=== PATIENT | male | born 1945 | race Caucasian/White ===

== ENCOUNTER 2018-08-02 19:42 | Emergency (ER) | payer SELFPAY ==
[~2018-08-02] VITALS: Ht 198.1 cm; Wt 82.2 kg
[2018-08-02 20:12] VITALS: BP 114/81
--- NOTE | 2018-08-02 20:23 | PHYS DOC ---
Adult General Chief Complaint Chief Complaint 73 years old gentleman with multiple medical problems including #1 history of syncope in the past, seizure, pacemaker placement , round and the men's bathroom on the floor stated that when he finished urinating he felt very dizzy and had a syncopal episode. He does not remember what happened after that HPI HPI Patient is a [age] year old [sex] who presents with [] Review of Systems Review of Systems Constitutional: Denies fever or chills [] Eyes: Denies change in visual acuity, redness, or eye pain [] HENT: Denies nasal congestion or sore throat [] Respiratory: Denies cough or shortness of breath [] Cardiovascular: No additional information not addressed in HPI [] GI: Denies abdominal pain, nausea, vomiting, bloody stools or diarrhea [] : Denies dysuria or hematuria [] Musculoskeletal: Denies back pain or joint pain [] Integument: Denies rash or skin lesions [] Neurologic: Denies headache, focal weakness or sensory changes [] Endocrine: Denies polyuria or polydipsia [] All other systems were reviewed and found to be within normal limits, except as documented in this note. Allergies Allergies Allergies Coded Allergies Type Severity Reaction Last Updated Verified No Known Drug Allergies 08/02/18 No Physical Exam Physical Exam Constitutional: Well developed, well nourished, no acute distress, non-toxic appearance. [] HENT: Normocephalic, atraumatic, bilateral external ears normal, oropharynx moist, no oral exudates, nose normal. [] Eyes: PERRLA, EOMI, conjunctiva normal, no discharge. [] Neck: Normal range of motion, no tenderness, supple, no stridor. [] Cardiovascular:Heart rate regular rhythm, no murmur [] Lungs & Thorax: Bilateral breath sounds clear to auscultation [] Abdomen: Bowel sounds normal, soft, no tenderness, no masses, no pulsatile masses. [] Skin: Warm, dry, no erythema, no rash. [] Back: No tenderness, no CVA tenderness. [] Extremities: No tenderness, no cyanosis, no clubbing, ROM intact, no edema. [] Neurologic: Alert and oriented X 3, normal motor function, normal sensory function, no focal deficits noted. [] Psychologic: Affect normal, judgement normal, mood normal. [] Current Patient Data Vital Signs Vital Signs Date Time Temp Pulse Resp B/P (MAP) Pulse Ox O2 Delivery O2 Flow Rate FiO2 08/02/18 19:42 97.5 61 18 97 Room Air Lab Results Laboratory Tests Test 08/02/18 20:27 White Blood Count 6.5 x10^3/uL (4.0-11.0) Red Blood Count 4.54 x10^6/uL (4.30-5.70) Hemoglobin 13.3 g/dL (13.0-17.5) Hematocrit 39.3 % (39.0-53.0) Mean Corpuscular Volume 87 fL (79-100) Mean Corpuscular Hemoglobin 29 pg (25-35) Mean Corpuscular Hemoglobin Concent 34 g/dL (31-37) Red Cell Distribution Width 13.4 % (11.5-14.5) Platelet Count 143 x10^3/uL (140-400) Neutrophils (%) (Auto) 79 % (31-73) H Lymphocytes (%) (Auto) 13 % (24-48) L Monocytes (%) (Auto) 8 % (0-9) Eosinophils (%) (Auto) 0 % (0-3) Basophils (%) (Auto) 1 % (0-3) Neutrophils # (Auto) 5.1 x10^3uL (1.8-7.7) Lymphocytes # (Auto) 0.8 x10^3/uL (1.0-4.8) L Monocytes # (Auto) 0.5 x10^3/uL (0.0-1.1) Eosinophils # (Auto) 0.0 x10^3/uL (0.0-0.7) Basophils # (Auto) 0.0 x10^3/uL (0.0-0.2) Prothrombin Time 10.1 SEC (9.4-11.4) Prothrombin Time INR 1.0 (0.9-1.1) PTT 26 SEC (23-33) Sodium Level 135 mmol/L (136-145) L Potassium Level 4.4 mmol/L (3.5-5.1) Chloride Level 99 mmol/L (98-107) Carbon Dioxide Level 28 mmol/L (21-32) Anion Gap 8 (6-14) Blood Urea Nitrogen 26 mg/dL (8-26) Creatinine 0.9 mg/dL (0.7-1.3) Estimated GFR (Cockcroft-Gault) 83.2 BUN/Creatinine Ratio 29 (6-20) H Glucose Level 102 mg/dL (70-99) H Calcium Level 8.8 mg/dL (8.5-10.1) Total Bilirubin 0.7 mg/dL (0.2-1.0) Aspartate Amino Transferase (AST) 46 U/L (15-37) H Alanine Aminotransferase (ALT) 38 U/L (16-63) Alkaline Phosphatase 78 U/L (46-116) Troponin I Quantitative 0.025 ng/mL (0-0.055) Total Protein 6.6 g/dL (6.4-8.2) Albumin 3.6 g/dL (3.4-5.0) Albumin/Globulin Ratio 1.2 (1.0-1.7) EKG EKG [] Radiology/Procedures Radiology/Procedures [] Course & Med Decision Making Course & Med Decision Making Pertinent Labs and Imaging studies reviewed. (See chart for details) A very lengthy discussion with the patient regarding his blood work x-rays and diagnoses I advised to stay the hospital for observation to rule out any arrhythmia or suture he declined stated this happened me many times in the past on finding I would like to go home I explained the risk and benefits she verbalizes understanding he sign AGAINST MEDICAL ADVICE and left home [] Final Impression Final Impression [] Problems: (1) Syncope Qualifiers: Qualified Codes: R55 - Syncope and collapse Dragon Disclaimer Dragon Disclaimer This electronic medical record was generated, in whole or in part, using a voice recognition dictation system. OCTAVIO CRENSHAW MD Aug 02, 2018 20:23
--- NOTE | 2018-08-02 20:28 | RAD ---
PQRS Compliance statement: One or more of the following individualized dose reduction techniques were utilized for this examination: 1. Automated exposure control. 2. Adjustment of the mA and/or kV according to patient size. 3. Use of iterative reconstruction technique. Indication:Syncope, confusion TECHNIQUE: CT head without IV contrast COMPARISON:None FINDINGS: No pathologic extra-axial or intra-axial fluid collection. The ventricles and basal cisterns are within normal limits. No acute intracranial bleed. 5 mm focus of low attenuation in the left basal ganglia most likely a lacunar infarct, age indeterminate but likely subacute to chronic. No focal loss of powell-white differentiation. Orbits are within normal limits. No suspicious calvarial lesion. Visualized paranasal sinuses and mastoid air cells are clear. IMPRESSION: No acute intracranial process. If concern for acute ischemic stroke is high, please consider MRI brain. Electronically signed by: Stiven Shea DO (08/02/2018 8:25 PM) [facility]
[2018-08-02 20:50] LABS: BASO % 1 % (0-3); EOS % 0 % (0-3); HEMATOCRIT 39.3 % (39.0-53.0); HEMOGLOBIN 13.3 g/dL (13.0-17.5); LYMPH # 0.8 x10^3/uL (1.0-4.8); LYMPH % 13 % (24-48); MEAN CORPUSCULAR HEMOGLOBIN 29 pg (25-35); MEAN CORPUSCULAR HGB CONC 34 g/dL (31-37); MEAN CORPUSCULAR VOLUME 87 fL (79-100); MONO # 0.5 x10^3/uL (0.0-1.1); MONO % 8 % (0-9); NEUT # 5.1 x10^3uL (1.8-7.7); NEUT % 79 % (31-73); PLATELET COUNT 143 x10^3/uL (140-400); RED BLOOD COUNT 4.54 x10^6/uL (4.30-5.70); RED CELL DISTRIBUTION WIDTH 13.4 % (11.5-14.5); WHITE BLOOD COUNT 6.5 x10^3/uL (4.0-11.0)
[2018-08-02 21:10] LABS: ALBUMIN 3.6 g/dL (3.4-5.0); ALBUMIN/GLOBULIN RATIO 1.2 (1.0-1.7); CALCIUM 8.8 mg/dL (8.5-10.1); CREATININE 0.9 mg/dL (0.7-1.3); GFR 83.2; POTASSIUM 4.4 mmol/L (3.5-5.1); TOTAL BILIRUBIN 0.7 mg/dL (0.2-1.0); TOTAL PROTEIN 6.6 g/dL (6.4-8.2)
--- NOTE | 2018-08-03 00:34 | EKG ---
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
== END 2018-08-02 21:57 | disposition left against medical advice (07) ==
LOC: ER 19:42
DX: R55 Syncope and collapse (principal); R42 Dizziness and giddiness; Z95.0 Presence of cardiac pacemaker
CPT/HCPCS: 36415; 70450; 80053; 84484; 85025; 85610; 85730; 93005; 99284

== ENCOUNTER 2019-08-27 10:37 | Inpatient (IN) | payer MEDICARE, OTHER ==
[2019-08-27] VITALS (10 sets, daily range): BP systolic 104–141; BP diastolic 62–80
[~2019-08-27] VITALS: Ht 198.1 cm; Wt 82.8 kg
--- NOTE | 2019-08-27 10:55 | PHYS DOC ---
Past History Past Medical History: Seizure, Other Past Surgical History: Appendectomy, Pacemaker, Other Alcohol Use: None Drug Use: None Adult General Chief Complaint Chief Complaint: SEIZURE HPI HPI Patient is a 74-year-old male presents after falling and hitting his head. He is on blood thinners. EMS brought the patient to the emergency department from the assisted care facility where he resides. While in the ambulance patient had a seizure. Patient does have a history of seizures for which she is on Keppra. He was given 5 mg of midazolam by EMS. History is from EMS. History is limited from the patient due to being postictal and post benzodiazepine administration.[] Review of Systems Review of Systems Unable to obtain due to altered mental status All other systems were reviewed and found to be within normal limits, except as documented in this note. Allergies Allergies Allergies Coded Allergies Type Severity Reaction Last Updated Verified No Known Drug Allergies 08/02/18 No Physical Exam Physical Exam Constitutional: Well developed, well nourished,. [] HENT: Normocephalic, laceration to left side of face as well as within his left sided hairline. Bilateral external ears normal, oropharynx moist, no oral exudates, nose normal. [] Eyes: PERRLA, EOMI, conjunctiva normal, no discharge. [] Neck: Cervical collar is in place. There is no step-off or crepitus midline cervical spine. supple, no stridor. [] Cardiovascular:Heart rate regular rhythm, no murmur [] Lungs & Thorax: Bilateral breath sounds clear to auscultation [] Abdomen: Bowel sounds normal, soft, no tenderness, no masses, no pulsatile masses. [] Skin: Warm, dry, no erythema, no rash. [] Back: No tenderness, no CVA tenderness. [] Extremities: No tenderness, no cyanosis, no clubbing, ROM intact, no edema. [] Neurologic: GCS of 3 but reflex is intact. He is tolerating his secretions.. [] Psychologic: Unable to evaluate. [] EKG EKG EKG shows a paced rhythm at 70 bpm, 160 axis, QTC of 513 ms, no ST elevations. Looks like an underlying fibrillation pattern. Compared to EKG of 08/02/2018, no acute changes are present.[] Radiology/Procedures Radiology/Procedures PROCEDURE: CT HEAD AND CERVICAL SPINE WO CT of the head, and CT scan of the cervical spine, for seizure, fall with head injury, patient on blood thinners. COMPARISON: Noncontrast CT scan of the head dated August 02, 2018. TECHNIQUE: Contiguous helical 5 mm axial images are obtained from the skull base to the vertex. No IV contrast was administered. Sagittal and coronal reformations are evaluated. 2 mm axial images are then obtained to the cervical spine, with scan without IV contrast, and sagittal and coronal reformations are evaluated in this distribution as well. Findings in the head: Images of the base are degraded somewhat by motion artifact. There is no acute territorial infarction, or intracranial hemorrhage. There is no mass, mass effect, or midline shift. There are couple of lacunar infarcts within the will radiata bilaterally. Ventricles are mildly enlarged. No extra axial fluid collection identified. Mastoid air cells and visualized paranasal sinuses are grossly unremarkable. No fractures or acute osseous abnormality is identified. There is a subgaleal right frontal hematoma. Impression of the head: 1. Small right frontal subgaleal hematoma with no acute intracranial abnormality. Findings in the cervical spine: These images are also degraded by motion artifact. Particularly at the cervicothoracic junction. No significant prevertebral soft tissue abnormality is identified. Mild coronary artery calcified case are seen. There is no fracture, or acute osseous or alignment abnormality of the cervical spine. There is straightening of the normal cervical lordosis. Prevertebral soft tissues are grossly unremarkable. There are severe multilevel degenerative changes, resulting in mild bony canal stenosis at C6-7. There are anterior and posterior osteophytes at C5-6 and C6-7, with significant narrowing of the intervertebral disc spaces at these levels, extensive facet arthrosis is seen bilaterally at all levels, and uncovertebral arthritis is also present at virtually all levels. There is mild neural foraminal narrowing at C2-3 on the left, moderate to severe neuroforaminal narrowing at C3-4 on the left, and moderate to severe narrowing of the left neural foramen at C6-7 on the left. IMPRESSION: 1. Straightening of the normal cervical lordosis with no acute osseous or alignment abnormality. 2. Severe multilevel degenerative changes resulting in bony central canal stenosis at C6-7 and moderate to severe neural foraminal narrowing on the left at C2-3 and C6-7.[] Course & Med Decision Making Course & Med Decision Making Pertinent Labs and Imaging studies reviewed. (See chart for details) Emergency department course: Patient arrived, was placed in bed, and tolerated exam well. He was transported to and from [place] with any complications. After returning from [place], his GCS improved however, he was still confused. Wounds were repaired as documented in the laceration no. He was updated on his tetanus status since he cannot recall when his last tetanus vaccine was. Consultation wa s made with hospitalist service for admission and further observation giving his still decreased mental status and being on blood thinners post a head injury. He was admitted in improved condition. Medical decision making: Patient with a known seizure disorder who had a seizure following head injury. His mental status has been clearing during his emergency department stay. However, admitting him for further evaluation and possible repeat CT scan given that he is on blood thinners.[] Dragon Disclaimer Dragon Disclaimer This electronic medical record was generated, in whole or in part, using a voice recognition dictation system. 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 The laceration was closed with 2 elsy. The facial laceration and multiple abrasions were covered with skin glue. Total repaired wound length: Scalp laceration 2 cm, facial laceration 1.5 cm. Other Items: See above The patient tolerated the procedure well. Hemostasis was achieved. Complications: None. Problem Qualifiers Primary Impression: Head injury Encounter type: initial encounter Qualified Codes: S09.90XA - Unspecified injury of head, initial encounter Additional Impressions: Altered mental status Altered mental status type: somnolence Qualified Codes: R40.0 - Somnolence Atrial fibrillation Atrial fibrillation type: unspecified Qualified Codes: I48.91 - Unspecified atrial fibrillation WILLY KERR DO Aug 27, 2019 10:55
[2019-08-27 11:12] LABS: BASO % 0 % (0-3); EOS % 1 % (0-3); HEMATOCRIT 52.8 % (39.0-53.0); HEMOGLOBIN 17.3 g/dL (13.0-17.5); LYMPH # 1.4 x10^3/uL (1.0-4.8); LYMPH % 23 % (24-48); MEAN CORPUSCULAR HEMOGLOBIN 30 pg (25-35); MEAN CORPUSCULAR HGB CONC 33 g/dL (31-37); MEAN CORPUSCULAR VOLUME 91 fL (79-100); MONO # 0.4 x10^3/uL (0.0-1.1); MONO % 7 % (0-9); NEUT # 4.4 x10^3uL (1.8-7.7); NEUT % 70 % (31-73); PLATELET COUNT 104 x10^3/uL (140-400); RED BLOOD COUNT 5.82 x10^6/uL (4.30-5.70); RED CELL DISTRIBUTION WIDTH 14.1 % (11.5-14.5); WHITE BLOOD COUNT 6.3 x10^3/uL (4.0-11.0)
[2019-08-27 11:24] LABS: ALBUMIN 3.9 g/dL (3.4-5.0); ALBUMIN/GLOBULIN RATIO 1.1 (1.0-1.7); CALCIUM 8.7 mg/dL (8.5-10.1); CREATININE 1.5 mg/dL (0.7-1.3); POTASSIUM 3.6 mmol/L (3.5-5.1); TOTAL BILIRUBIN 0.7 mg/dL (0.2-1.0); TOTAL PROTEIN 7.3 g/dL (6.4-8.2)
[2019-08-27 11:34] LABS: BACTERIA,URINE 0 /HPF (0-FEW); BILIRUBIN,URINE NEG (NEG); CLARITY,URINE HAZY; COLOR,URINE YELLOW; GLUCOSE,URINE NEG (NEG); NITRITE,URINE NEG (NEG); UROBILINOGEN,URINE 0.2 mg/dL (0.2 mg/dL); WBC,URINE OCC /HPF (0-4)
--- NOTE | 2019-08-27 12:08 | EKG ---
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
[2019-08-27] MEDS ORDERED: APIX5TAB3 PO (12:14)
[2019-08-27] MEDS ORDERED: LEVO75TA PO (12:14)
[2019-08-27] MEDS ORDERED: LEVE100020 PO (12:14)
[2019-08-27] MEDS ORDERED: METO50TA29 PO (12:14)
[2019-08-27] MEDS ORDERED: IV NORMAL SALINE 500ML 500 ML IV ONE (12:15)
[2019-08-27] MEDS ORDERED: IV NORMAL SALINE 1,000ML 1,000 ML IV ONE (12:15)
--- NOTE | 2019-08-27 12:17 | RAD ---
CT of the head, and CT scan of the cervical spine, for seizure, fall with head injury, patient on blood thinners. COMPARISON: Noncontrast CT scan of the head dated August 02, 2018. TECHNIQUE: Contiguous helical 5 mm axial images are obtained from the skull base to the vertex. No IV contrast was administered. Sagittal and coronal reformations are evaluated. 2 mm axial images are then obtained to the cervical spine, with scan without IV contrast, and sagittal and coronal reformations are evaluated in this distribution as well. Findings in the head: Images of the base are degraded somewhat by motion artifact. There is no acute territorial infarction, or intracranial hemorrhage. There is no mass, mass effect, or midline shift. There are couple of lacunar infarcts within the will radiata bilaterally. Ventricles are mildly enlarged. No extra axial fluid collection identified. Mastoid air cells and visualized paranasal sinuses are grossly unremarkable. No fractures or acute osseous abnormality is identified. There is a subgaleal right frontal hematoma. Impression of the head: 1. Small right frontal subgaleal hematoma with no acute intracranial abnormality. Findings in the cervical spine: These images are also degraded by motion artifact. Particularly at the cervicothoracic junction. No significant prevertebral soft tissue abnormality is identified. Mild coronary artery calcified case are seen. There is no fracture, or acute osseous or alignment abnormality of the cervical spine. There is straightening of the normal cervical lordosis. Prevertebral soft tissues are grossly unremarkable. There are severe multilevel degenerative changes, resulting in mild bony canal stenosis at C6-7. There are anterior and posterior osteophytes at C5-6 and C6-7, with significant narrowing of the intervertebral disc spaces at these levels, extensive facet arthrosis is seen bilaterally at all levels, and uncovertebral arthritis is also present at virtually all levels. There is mild neural foraminal narrowing at C2-3 on the left, moderate to severe neuroforaminal narrowing at C3-4 on the left, and moderate to severe narrowing of the left neural foramen at C6-7 on the left. IMPRESSION: 1. Straightening of the normal cervical lordosis with no acute osseous or alignment abnormality. 2. Severe multilevel degenerative changes resulting in bony central canal stenosis at C6-7 and moderate to severe neural foraminal narrowing on the left at C2-3 and C6-7. PQRS Compliance Statement: One or more of the following individualized dose reduction techniques were utilized for this examination: 1. Automated exposure control 2. Adjustment of the mA and/or kV according to patient size 3. Use of iterative reconstruction technique Electronically signed by: Nghia Varela MD (08/27/2019 12:14 PM) [facility]
[2019-08-27] MEDS ORDERED: ACETAMINOPHEN 325 MG TABLET PO PRN (14:00)
[2019-08-27] MEDS ORDERED: ONDANSETRON PF 4 MG/2 ML VIAL. IV PRN (14:00)
[2019-08-27] MEDS ORDERED: DIPHTH,PERTUSS(ACELL),TET TOX 0.5 ML DISP.SYRIN. VAX IM ONE (14:00)
--- NOTE | 2019-08-27 15:10 | NUR ---
The patient, STEPHANIE LUA, 74 y/o, M admitted by FERMIN VEGA MD, was given written information regarding hospital policies, unit procedures and contact persons. Valuables were checked and left with patient. Pt confused upon arrival. Pt states "Is it 3 O'clock in the morning?" Pt continually states "I need to pee, I need to pee." Pts munoz was D/C with ER nurse prior to arrival. Will follow up with Bladder scanner if not resolved. VSS at this time will CTM.
--- NOTE | 2019-08-27 15:20 | NUR ---
This nurse did not witness seizure; GILSON Ward & Celsa RN helped pt to bed, pt was clenching fists and teeth and shaking, was not responsive to nurse/WELDER [employer]. Seizure approximately last 30 seconds. Will CTM.
--- NOTE | 2019-08-27 15:25 | NUR ---
CALL PLACED TO DR. VEGA; ORDERS RECIEVED FOR KEPPRA IV 1,[address] FOR TOMORROW MORNING.
[2019-08-27] MEDS: levETIRAcetam 1,500 MG in IV NORMAL SALINE 100ML 100 ML IV SCH ×2 (15:43→20:35)
[2019-08-27] MEDS: Influenza vaccine per PROTOCOL. MC ONE (17:00)
--- NOTE | 2019-08-27 20:35 | HP ---
ADMIT DATE: 08/27/2019 ATTENDING PHYSICIAN: Dr. Vega. CHIEF COMPLAINT: Head injury. HISTORY OF PRESENT ILLNESS: The patient is a very pleasant 74-year-old gentleman who has been in independent living at [facility]. He is on blood thinners, Eliquis, for chronic atrial fibrillation. He has a permanent pacemaker. He fell, he tripped and did not realize that. After he fell, he had a witnessed seizure by EMS personnel. He does have underlying seizure disorder. He was given Versed. The patient was very obtunded. In the ED, he was in a postictal state. He woke up later, he had an urgent CT of the head which showed no evidence of intracranial bleeding. He had a very small frontal subgaleal hematoma without any acute intracranial abnormalities. Cervical spine films are unremarkable for any fractures. Because of the seizures, I have ordered some Keppra. He was admitted overnight for observation. He later woke up and was able to give some pertinent history. PAST MEDICAL HISTORY: Significant for idiopathic seizure disorder. He does not know why he is taking medication. He thought this was due to unwarranted complications from certain medications that he has used. He also has a permanent pacemaker placed several years ago. He is a . 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 He goes normally to the [facility] [facility]. CURRENT MEDICINES: Reviewed. He was taking Eliquis twice a day along with aspirin p.r.n., Keppra, lorazepam, and metoprolol 50 mg daily. ALLERGIES: He has allergies to PENICILLIN which causes a rash. He has been fairly alert and active. FAMILY HISTORY: Mother at age 71 of unknown causes. Father in his 50 again of unknown causes. REVIEW OF SYSTEMS: Significant for the irregular heartbeat. He has got a permanent pacemaker. He has had snf use of blood thinners. All other systems reviewed and determined to be negative. PHYSICAL EXAMINATION: GENERAL AND VITAL SIGNS: When I saw him, this is a pleasant gentleman who was alert and awake by the time I saw him a few hours later in the unit. His initial vital signs showed a blood pressure of 120/75, pulse is 70 and regular, paced rhythm, room air saturations oxygen was 96%. HEENT: Head is without trauma. There are a few scratches on his face. No open wounds. Pupils are reactive. Sclerae nonicteric. Oropharynx clear. NECK: Supple, no bruits or decreased range of motion. LUNGS: Otherwise clear to auscultation. CARDIOVASCULAR: Showed regular heart tones. Pacemaker is in place. Peripheral pulses are palpable and full. ABDOMEN: Soft, scaphoid, nontender, no organomegaly. Bowel sounds are normoactive. EXTREMITIES: Show no cyanosis or edema. NEUROLOGIC: The patient had some witnessed seizure earlier, he is still a little lethargic. He is nonambulatory at this time, but he has no focal neurologic deficit. Speech is actually fluent and appropriate. PERTINENT LABORATORY STUDIES: His hemoglobin in a hemoconcentrated state was 17.3 g/dL with a white count of 6300. Chemistry panel showed creatinine 1.5. Electrolytes within normal range. Lactate was initially recorded at 1048 hours at 9.7, repeated at 1411 hours down to 1.3 and normal. Bilirubin, transaminases and total protein were all within normal range. The obligatory CT of the head and cervical spine films are as noted. ASSESSMENT: 1. A 74-year-old gentleman with fall at home, accidental. 2. Concussion, acute. 3. Chronic use of anticoagulation. Initial CT scan showed no evidence of intracranial hemorrhage. 4. Permanent pacemaker that is functioning. 5. Idiopathic seizure disorder with breakthrough seizures. 6. Mild dehydration. PLAN: 1. Admit to the ICU. 2. Neuro checks every hour for the next 8 hours. 3. Diet as tolerated. 4. I have ordered IV Keppra 1500 mg IV twice a day. We will switch him over to oral dose when he is more awake. 5. Followup CT scan in the morning. FERMIN VEGA MD DR: TY/hank JOB#: [id number] / [id number] ecc Carlos A,
[2019-08-28] VITALS (21 sets, daily range): BP systolic 105–157; BP diastolic 62–92
[2019-08-28 07:10] LABS: BASO % 0 % (0-3); EOS % 0 % (0-3); HEMATOCRIT 46.3 % (39.0-53.0); HEMOGLOBIN 15.6 g/dL (13.0-17.5); LYMPH # 0.8 x10^3/uL (1.0-4.8); LYMPH % 12 % (24-48); MEAN CORPUSCULAR HEMOGLOBIN 30 pg (25-35); MEAN CORPUSCULAR HGB CONC 34 g/dL (31-37); MEAN CORPUSCULAR VOLUME 88 fL (79-100); MONO # 0.5 x10^3/uL (0.0-1.1); MONO % 7 % (0-9); NEUT # 5.4 x10^3uL (1.8-7.7); NEUT % 80 % (31-73); PLATELET COUNT 89 x10^3/uL (140-400); RED BLOOD COUNT 5.29 x10^6/uL (4.30-5.70); WHITE BLOOD COUNT 6.7 x10^3/uL (4.0-11.0)
[2019-08-28 07:25] LABS: CALCIUM 8.1 mg/dL (8.5-10.1); GFR 73.5; POTASSIUM 3.6 mmol/L (3.5-5.1)
[2019-08-28 09:25] LABS: % ATYL 3 % (0-0); % BANDS 7 % (0-9); % EOS 1 % (0-5); % LYMPHS 9 % (24-48); % MONOS 10 % (0-10); % SEGS 70 % (35-66)
[2019-08-28 09:27] LABS: PLT ESTIMATE DECREASED (ADEQUATE)
[2019-08-28] MEDS: levETIRAcetam 1,500 MG in IV NORMAL SALINE 100ML 100 ML IV SCH ×2 (09:31→20:09)
--- NOTE | 2019-08-28 09:52 | RAD ---
CT HEAD INDICATION: Status post fall, seizure COMPARISON: 08/27/2019 Exposure: One or more of the following individualized dose reduction techniques were utilized for this examination: 1. Automated exposure control 2. Adjustment of the mA and/or kV according to patient size 3. Use of iterative reconstruction technique TECHNIQUE: 5 mm contiguous axial images were obtained from the skull base to the vertex in both bone and soft tissue algorithm. FINDINGS: No abnormal attenuation within the brain parenchyma. No evidence of acute intracranial hemorrhage. No extra-axial fluid collections. No mass effect or midline shift. Ventricular size is appropriate. Basal cisterns are patent. No fractures identified.Rice-white differentiation is preserved.Globes and orbits are within normal limits. Paranasal sinuses and mastoid air cells are clear. Small right frontal scalp hematoma unchanged. IMPRESSION: No acute intracranial findings. Electronically signed by: David Friend MD (08/28/2019 9:49 AM) [facility]
--- NOTE | 2019-08-28 12:55 | NUR ---
Witnessed activity: pt clenched fists, contracted legs, slight shaking, repeatedly biting teeth together, staring. Lasted about 40 seconds. Pt stated, "Whew...I want, I want", but could not tell me what he wanted. He reoriented after about 1 minute and returned to baseline.
--- NOTE | 2019-08-28 16:34 | NUR ---
About 1600, pt experienced another episode, lasting about 1 minute. Clenched fists, increased respirations and heart rate, staring, stating "I want to, I want to, I want to". Returned to baseline. Pt spoke with brother, Mayo, on phone. Pt is hopeful he "can go home tomorrow".
[2019-08-28] MEDS: Influenza vaccine per PROTOCOL. MC ONE (20:09)
--- NOTE | 2019-08-28 21:00 | NUR ---
Pt is more alert this evening. He is now oriented to person, place, time, situation. Pt does have forgetful moments, and often repeats his questions. He is easily redirected. Pt refused evening snack. Pt is restless and fidgeting with IV, monitor leads, etc. PRN ativan given per orders. WCTM
[2019-08-29] VITALS (10 sets, daily range): BP systolic 126–160; BP diastolic 70–100
--- NOTE | 2019-08-29 00:01 | NUR ---
Pt has woken up a couple of times confused, pt easily reoriented. Pt is sensitive to monitor alarms at the nurses station and other noises. Monitor silenced in pt's room.
--- NOTE | 2019-08-29 05:49 | NUR ---
Pt has been waking up every couple of hours, needing to urinate. Pt has not had any episodes of seizure like activity this shift.
[2019-08-29 06:19] LABS: BASO % 1 % (0-3); EOS # 0.1 x10^3/uL (0.0-0.7); EOS % 1 % (0-3); HEMATOCRIT 45.6 % (39.0-53.0); HEMOGLOBIN 15.6 g/dL (13.0-17.5); LYMPH # 0.9 x10^3/uL (1.0-4.8); LYMPH % 15 % (24-48); MEAN CORPUSCULAR HEMOGLOBIN 30 pg (25-35); MEAN CORPUSCULAR HGB CONC 34 g/dL (31-37); MEAN CORPUSCULAR VOLUME 88 fL (79-100); MONO # 0.5 x10^3/uL (0.0-1.1); MONO % 8 % (0-9); NEUT # 4.6 x10^3uL (1.8-7.7); NEUT % 75 % (31-73); PLATELET COUNT 90 x10^3/uL (140-400); RED BLOOD COUNT 5.21 x10^6/uL (4.30-5.70); RED CELL DISTRIBUTION WIDTH 13.8 % (11.5-14.5)
[2019-08-29 06:30] LABS: ALBUMIN 3.2 g/dL (3.4-5.0); ALBUMIN/GLOBULIN RATIO 1.1 (1.0-1.7); CALCIUM 8.1 mg/dL (8.5-10.1); GFR 73.5; POTASSIUM 3.7 mmol/L (3.5-5.1); TOTAL BILIRUBIN 0.8 mg/dL (0.2-1.0); TOTAL PROTEIN 6.1 g/dL (6.4-8.2)
[2019-08-29] MEDS: APIXABAN 5 MG TABLET. PO SCH ×2 (08:17→20:39)
[2019-08-29] MEDS: LEVOTHYROXINE 75 MCG TABLET PO SCH (08:17)
[2019-08-29] MEDS: METOPROLOL SUCC 24HR ER 50 MG TAB.ER.24H. PO SCH (08:18)
[2019-08-29] MEDS: levETIRAcetam 500 MG TABLET PO SCH ×2 (08:18→20:39)
--- NOTE | 2019-08-29 08:46 | NUR ---
PT was sitting up getting ready to eat breakfast and started to shake and studder and was stuck on the same word. HR went up to 140's sustained and pt started to grit teeth. This went on for approximately 1 min 30 seconds than pt started eating his breakfast. Pt had just taken his meds po. Yann Duval
[2019-08-29] MEDS ORDERED: FLU VAX QS 2019-20 (36MOS+)/PF 0.5 ML SYRINGE. VAX IM ONE (09:00)
--- NOTE | 2019-08-29 10:00 | PN ---
DATE: 08/28/2019 ATTENDING PHYSICIAN: Dr. Vega. CHIEF COMPLAINT: Fall. SUBJECTIVE: The patient is arousable. He still remains confused. He did not sleep well last night. He cannot remember his medications. During our visit last night when I saw the patient for his history and physical, he had a 10-second episode where he had a blank stare and was not with it. I suspect he had a breakthrough absence type seizure. According to the records at the independent living facility, he is on Keppra. Whether or not he was taking it remains to be seen. He may have been taking it, but is having breakthrough seizures. I suspect he had a breakthrough seizure causing the fall, which led him to be hospitalized. He cannot give us any history. He lives alone. He has 1 brother who is involved in his care, but he lives in [place]. OBJECTIVE FINDINGS: VITAL SIGNS: His vital signs are stable. Heart rate is approximately 70 and regular, blood pressure is maintained. HEENT: Head is without trauma. There are some facial lacerations. Pupils are reactive. Sclerae are nonicteric. NECK: Supple. LUNGS: Shallow respirations. Otherwise clear. CARDIOVASCULAR: Showed regular heart tones. No obvious gallops. Peripheral pulses are palpable and full. ABDOMEN: Soft, scaphoid, nontender, no organomegaly. Bowel sounds are hypoactive. EXTREMITIES: Showed no cyanosis or edema. NEUROLOGIC: The patient is fairly responsive. He is nonambulatory at this time. He appears tired, fatigued. He responded to questions appropriately. A repeat CT of the head is pending for later this morning. ASSESSMENT: 1. A 74-year-old gentleman with a fall striking his head, resulting in a concussion. I suspect he had a breakthrough seizure causing the fall. 2. Idiopathic seizure disorder. 3. Permanent pacemaker. 4. Essential hypertension. 5. Mild dehydration. 6. Chronic anticoagulation. PLAN: 1. Maintain in ICU. 2. Repeat CT of the head is ordered this morning. 3. Intravenous Keppra will be continued, 1500 mg IV b.i.d. 4. I would favor a formal neurology consultation. FERMIN VEGA MD DR: TY/hank JOB#: [id number] / [id number] junie PAULINO DR.
--- NOTE | 2019-08-29 10:00 | CONS ---
DATE OF CONSULTATION: NEUROLOGY CONSULTATION REFERRING PHYSICIAN: Dr. Lundy. REASON FOR CONSULTATION: Possible breakthrough seizure and falls. HISTORY OF PRESENT ILLNESS: This is a 74-year-old right-handed male who was admitted through the Emergency Room after he presented with possible breakthrough seizure. According to ER chart, the patient has been in independent living at [facility] and has history of seizure disorder of unknown etiology. It was reported that he tripped and fell forward, and had a closed head injury. The patient did not recall the event. EMS was activated and transferred the patient to the Emergency Room, where he was found confused and possible postictal state. The patient is not a good historian; he could not recall the event. He denies bowel or bladder incontinence. According to his father, the patient has been taking his seizure medicine regularly. Currently, the patient denies headaches, visual disturbances, nausea, vomiting, chest pain, shortness of breath or palpitation, dysarthria, dysphagia, weakness or paresthesia. The patient also denies bowel or bladder incontinence. On admission, initial nonenhanced head CT scan revealed no acute intracranial findings as hemorrhage or other pathology. The current anticonvulsants include Keppra 1500 mg p.o. twice daily and according to his brother the patient has been very diligent, taking his medication at times. PAST MEDICAL HISTORY: Significant for cardiac arrhythmia - atrial fibrillation, history of seizure disorder of unknown etiology, status post pacemaker placement and hypothyroidism. PAST SURGICAL HISTORY: Status post permanent pacemaker placement. SOCIAL HISTORY: The patient lives in independent place at [facility]. He denies smoking, alcohol drinking or illicit drug use. He is a . CURRENT MEDICATIONS: Eliquis, aspirin, Keppra 1500 mg twice daily, lorazepam, metoprolol 50 mg daily. ALLERGIES: PENICILLIN causing rash. FAMILY HISTORY: Noncontributory. REVIEW OF SYSTEMS: A 14-point review of system was performed as mentioned above in the history of present illness, otherwise unremarkable. PHYSICAL EXAMINATION: GENERAL: Well-developed, well-nourished male, in no acute distress. VITAL SIGNS: He weighs 91.2 kilos. Blood pressure 105/70, respiratory rate 12, pulse is 70 and regular, oxygen saturation is 95% on room air. HEENT: Multiple abrasions over the right forehead and left face, otherwise unremarkable. NECK: Supple. Negative for carotid bruit, lymphadenopathy or thyromegaly. LUNGS: Clear to A and P. CARDIOVASCULAR: Regular rate and rhythm, normal S1, S2. ABDOMEN: Soft. Bowel sounds positive. There is no palpable mass or organomegaly or tenderness. EXTREMITIES: Negative for cyanosis, clubbing or pitting edema. NEUROLOGICAL EXAMINATION: MENTAL STATUS: The patient is alert and oriented to himself and place. The speech is fluent. There is no language dysfunction. His memory, judgment and abstract thinking are fair. The patient denies hallucination or delusion. CRANIAL NERVES: Visual abdullahi are full. The pupils are reactive to light and accommodation. The extraocular movements are intact. There is no nystagmus. There is no facial motor or sensory deficit. Hearing is intact bilaterally. The palate is elevated symmetrically. Sternocleidomastoid muscles are powerful bilaterally. The patient shrugs his shoulders symmetrically, protrudes his tongue in the midline without fasciculation or atrophy. MOTOR EXAMINATION: No focal muscle bulk was seen. The tone is normal. The strength is 5/5 throughout. SENSORY EXAMINATION: Revealed normal pinprick, light touch, vibratory and position senses. DEEP TENDON REFLEXES: Symmetric and hypoactive with absent Achilles responses. GAIT: Not tested. The patient has normal coordination. DIAGNOSTIC DATA: Nonenhanced head CT scan as described above in the history of present illness. Cervical spine CT scan revealed severe multifocal degenerative disk disease at multiple levels, more prominent at C6-C7 with spinal canal stenosis; spinal canal stenosis was also noted at C2-C3. Otherwise, no acute abnormalities or fracture. LABORATORY DATA: CBC revealed white blood cells of 6.7 thousand, hemoglobin 15.6, hematocrit 46.3, platelet count 89,000. Chemistry revealed sodium of 159, potassium of 3.6, chloride 107, CO2 of 27, BUN 19, creatinine 1, glucose 69, calcium 8.1. Coagulation, PT is 11.5 and INR 1.1 and PTT is 27. Urinalysis is negative for urinary tract infections. IMPRESSION: 1. Status post fall and closed head injury, followed by seizure activities with negative head CT scan for acute intracranial process and no focal neurological deficits. 2. History of seizure disorder of unknown etiology. 3. Multiple medical problems include hypothyroidism; history of atrial fibrillation and status post permanent pacemaker placement, on anticoagulant; thrombocytopenia. RECOMMENDATIONS: 1. Continue with current medical care including current home medications with Keppra 1500 mg twice daily. 2. Await for repeat head CT scan in the morning. 3. We will arrange for EEG on an outpatient basis. M Frederic GARY MD DR: TRUONG/hank JOB#: [id number] / [id number]
[2019-08-29] MEDS: LACOSAMIDE 50 MG TABLET PO SCH ×2 (10:22→20:39)
--- NOTE | 2019-08-29 11:27 | NUR ---
Another episode...... timed and lasted 1 min 33 seconds. Started when pts whole body starts to shudder and he moved arms tremor like. Pt eyes open then pt stares off and will repeat same word or not respond. He bites his knuckle when this happens or grinds his teeth. His HR spikes to 140's. Pt starts to respond before heart rate goes down. Then approx one minute later patient is trying to get out of bed. Asked pt where he is going and he says to get dressed to go to lunch. Reoriented patient that he is in the hospital and is already dressed. PT very confused after each episode. PT went to shower earlier and was trying to put the gown on as pants and was unable to dress self. Yann MEDINA
--- NOTE | 2019-08-29 14:16 | NUR ---
Another episode.... Dr Fung was at bedside and woke patient up. He was visiting with pt then the pt proceeded to tremor, then stare off, HR was 135, unable to answer questions and was biting Left hand. After that pt was unable to answer any of DR. Fung's questions or carry on a conversation. Pt than tried to get up out of bed to go to get "groceries". Episode lasted one minute 20 seconds. Two of the episodes were after waking the patient up. Yann MEDINA
--- NOTE | 2019-08-29 17:37 | NUR ---
PT has had a total of 4 episodes today all similar in nature. No loss of consciousness just change in mentation. PT is postictal for some time after each episode. PT reports pt is unsafe ambulating alone and pt lives in [facility]. PT is very impulsive and get's up without calling to 'go get groceries' or 'go to the dining room'. Dr Art recommends pt to have EEG at his office on a thu, started him on vimpat 100 mg po BID, which pt has had one dose today. PT is to have keppra level prior to HS dose. Unsure of Dc plan of care at this time, Brother is contact in [place] and his danny said he can give him a ride if needed. Pt high fall risk at this time. Yann MEDINA
--- NOTE | 2019-08-30 00:14 | HP ---
ADMIT DATE: HISTORY OF PRESENT ILLNESS: The patient is a 74-year-old male usually goes to the [place], but due to diversion was sent here to the [facility]. The patient has a long history of multiple medical problems including that of stroke. DICTATION ENDS HERE. JOLLY MARIE MD DR: GISEL/hank JOB#: [id number] / [id number]
--- NOTE | 2019-08-30 01:01 | PN ---
DATE: REFERRING PHYSICIAN: Dr. Lundy. SUBJECTIVE: According to the nursing staff, the patient had brief seizure-like activities that lasted 1-1/2 minutes followed by postictal confusion and disorientation. The patient witnessed to have jerking movements of the upper extremities. Reviewing previous medical record from , the patient apparently had recurrent seizures. Initial EEG revealed evidence of bilateral temporal epileptic discharges earlier this year, but last EEG performed in summer of this year revealed no evidence of epileptiform discharges. The patient had neuropsychiatric evaluation which revealed evidence of early dementia. Currently, the patient denies chest pain, shortness of breath, palpitations, dysarthria, dysphagia, weakness, or paresthesia. OBJECTIVE: GENERAL: Well-developed, well-nourished male, not in acute distress. VITAL SIGNS: Blood pressure 135/72, respiratory rate 19, pulse is 70, temperature 98, oxygen saturation 97% on room air. HEENT: Normocephalic, atraumatic, otherwise unremarkable. NECK: Supple. Negative for carotid bruit, lymphadenopathy, or thyromegaly. LUNGS: Clear to A and P. CARDIOVASCULAR: Regular rate and rhythm, normal S1, S2. ABDOMEN: Soft. Bowel sounds positive. EXTREMITIES: Negative for cyanosis, clubbing, or edema. NEUROLOGICAL EXAMINATION: Mental Status: The patient is alert, but disoriented to place. He said he is in [place], not in [place]. His speech is fluent. There is no language dysfunction. His memory, judgment, and abstracting thinking are fair. The patient denies hallucination or delusion. Cranial nerves are grossly intact. No focal motor or sensory deficits. Deep tendon reflexes were symmetric and hyperactive with absent Achilles responses. Gait: The stance is steady. LABORATORY DATA: CBC revealed white blood cells of 6000, hemoglobin 15.6, hematocrit 45.6, platelet count 90,000. Chemistry revealed sodium of 140, potassium 3.7, chloride 106, CO2 26, BUN 17, creatinine 1, glucose 79, calcium 8.1. IMPRESSION: 1. Breakthrough seizure. 2. History of seizure disorder of unknown etiology. 3. Multiple previous EEG with different results. 4. Multiple medical problems include atrial fibrillation, status post pacemaker placement, hypothyroidism, hypertension, hyperlipidemia, and dementia. RECOMMENDATIONS: 1. Because of recurrent seizures which seemed to be like complex partial seizures, I will add Vimpat 100 mg twice daily. 2. We will check Keppra level. 3. We will arrange for EEG to be done as an outpatient this week. 4. Continue with current management. M Frederic GARY MD DR: TRUONG/hank JOB#: [id number] / [id number]
[2019-08-30 05:36] VITALS: BP 148/94
[2019-08-30 06:16] LABS: ALBUMIN 3.4 g/dL (3.4-5.0); ALBUMIN/GLOBULIN RATIO 1.1 (1.0-1.7); CALCIUM 8.5 mg/dL (8.5-10.1); GFR 73.5; POTASSIUM 3.8 mmol/L (3.5-5.1); TOTAL BILIRUBIN 0.8 mg/dL (0.2-1.0); TOTAL PROTEIN 6.5 g/dL (6.4-8.2)
[2019-08-30 06:19] LABS: BASO % 1 % (0-3); EOS % 1 % (0-3); HEMATOCRIT 44.8 % (39.0-53.0); HEMOGLOBIN 15.5 g/dL (13.0-17.5); LYMPH % 16 % (24-48); MEAN CORPUSCULAR HEMOGLOBIN 30 pg (25-35); MEAN CORPUSCULAR HGB CONC 35 g/dL (31-37); MEAN CORPUSCULAR VOLUME 87 fL (79-100); MONO # 0.4 x10^3/uL (0.0-1.1); MONO % 7 % (0-9); NEUT # 4.5 x10^3uL (1.8-7.7); NEUT % 76 % (31-73); PLATELET COUNT 93 x10^3/uL (140-400); RED BLOOD COUNT 5.17 x10^6/uL (4.30-5.70); RED CELL DISTRIBUTION WIDTH 13.8 % (11.5-14.5); WHITE BLOOD COUNT 5.9 x10^3/uL (4.0-11.0)
--- NOTE | 2019-08-30 06:28 | NUR ---
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 Pt slept very little and struggles to sleep w/all the light in the ICU rooms. Pt voids clear yellow urine every hour throughout the night. VSS. Pt expressed desire to go home today.
[2019-08-30] MEDS: LEVOTHYROXINE 75 MCG TABLET PO SCH (08:17)
[2019-08-30] MEDS: METOPROLOL SUCC 24HR ER 50 MG TAB.ER.24H. PO SCH (08:17)
[2019-08-30] MEDS: levETIRAcetam 500 MG TABLET PO SCH (08:17)
[2019-08-30] MEDS: LACOSAMIDE 50 MG TABLET PO SCH (08:18)
[2019-08-30] MEDS: APIXABAN 5 MG TABLET. PO SCH (08:18)
--- NOTE | 2019-08-30 10:32 | PN ---
DATE: REFERRING PHYSICIAN: Dr. Lundy. SUBJECTIVE: The patient denies any new medical or neurological complaints. He has not had any seizure activity since being on Vimpat yesterday. OBJECTIVE: GENERAL: Well-developed, well-nourished male, not in acute distress. VITAL SIGNS: Blood pressure 148/94, respiratory rate 14, pulse is 70, temperature 97.8, oxygen saturation 98% on room air. HEENT: Normocephalic, atraumatic, otherwise unremarkable. NECK: Supple. Negative for carotid bruit, lymphadenopathy or thyromegaly. LUNGS: Clear to A and P. CARDIOVASCULAR: Regular rate and rhythm, normal S1, S2. ABDOMEN: Soft. Bowel sounds positive. EXTREMITIES: Negative for cyanosis, clubbing or edema. NEUROLOGICAL EXAM: Mental Status: The patient is alert and oriented x 3. Speech is fluent. There is no language dysfunction. Memory, judgment, and abstract thinking are fair. The patient denies hallucination or delusion. Cranial nerves are intact. Motor examination: No focal motor deficit. Sensory examination: No focal or sensory deficit. Deep tendon reflexes were symmetric and hypoactive with absent Achilles responses. Gait and coordination are normal. LABORATORY DATA: CBC revealed white blood cells of 5.9 thousand, hemoglobin 15.5, hematocrit 44.8, platelet count 76,000. Chemistry revealed sodium of 137, potassium 3.8, chloride 103, CO2 is 26, BUN 16, creatinine 1, glucose is 83 and calcium 8.5. IMPRESSION: 1. Breakthrough seizure with a longstanding history of seizure of unknown etiology. 2. Multiple medical problems include paroxysmal atrial fibrillations, hypothyroidism, hypertension, hyperlipidemia, possible early dementia and thrombocytopenia. RECOMMENDATIONS: 1. Continue with current management and medications. 2. We will arrange for an EEG on an outpatient basis. M Frederic GARY MD DR: TRUONG/hank JOB#: [id number] / [id number]
[2019-08-30 11:00] VITALS: BP 128/86
[2019-08-30] MEDS ORDERED: LACO100T PO ×2 (11:06→13:43)
--- NOTE | 2019-08-30 11:09 | DISCH ---
HOME HEALTH DISCHARGE/MEDS DISCHARGE INFORMATION: Discharge Date: Aug 30, 2019 Final Diagnosis: Problems Medical Problems: (1) Altered mental status Status: Acute (2) Atrial fibrillation Status: Acute (3) Head injury Status: Acute (4) Hx of long-term use of blood thinners Status: Acute (5) Seizure Status: Acute Condition on Discharge: Stable CODE STATUS: Code Status: Full HOME HEALTH: Face to Face: I certify this patient is under my care and that I, or a nurse practitioner or physician's resident care assistant working with me, had a face to face encounter that meets the physician face to face encounter requirements with this patient on 08/30/19 Medical Condition(s): Other Care Home For: Medication Management Physical Therapy For: Evalulation/Treatment Occupational Therapy For: Evaluation/Treatment Speech Language Pathology For: Evaluation/Treatment Homebound Status Met By: Unsteady balance w/ amb, POST DISCHARGE ORDERS: Activity Instructions for Disc: Resume previous activity CERTIFICATION STATEMENT: Certification Statement: Based on the above finding, I certify that this patient is confined to the home and needs intermittent senior living care, physical therapy and/or speech therapy, or continues to need occupational therapy.~ This patient is under my care, and I have initiated the establishment of the plan of care.~ This patient will be followed by myself or a community physician who will periodically review the plan of care. DISCHARGE MEDICATIONS: Home Meds Active Scripts Lacosamide (VIMPAT) 100 Mg Tablet, 100 MG PO BID for seizure for 30 Days, #60 TAB 5 Refills Prov:ROBERT PAULINO MD 08/30/19 Reported Medications Levothyroxine Sodium (SYNTHROID) 75 Mcg Tablet, 75 MCG PO DAILYAC for THYROID SUPPLEMENT, #30 TAB 0 Refills 08/27/19 Apixaban (ELIQUIS) 5 Mg Tablet, 5 MG PO BID PRN for Afib, TAB 08/27/19 Metoprolol Succinate (METOPROLOL SUCCINATE ( XL )) 50 Mg Tab.er.24h, 50 MG PO DAILY for FOR HYPERTENSION, #30 TAB 0 Refills 08/27/19 Levetiracetam (KEPPRA) 1,000 Mg Tablet, 1500 MG PO BID for seizure disorder, TAB 08/27/19 ROBERT PAULINO MD Aug 30, 2019 11:09
--- NOTE | 2019-08-30 11:39 | DS ---
DATE OF DISCHARGE: 08/30/2019 HOSPITAL COURSE: The patient is a 74-year-old male patient, a resident at [facility], who was admitted on 08/27/2019 after he fell and has had a witnessed seizure by EMS personnel. He does have an underlying seizure disorder. He was given Versed. The patient was very obtunded on arrival in the Emergency Room, he was in postictal state. He woke up later and had an urgent CT of the head, which showed no evidence of any intracranial bleeding. There was very small frontal subgaleal hematoma without any acute intracranial abnormalities. Cervical spine films are unremarkable for any fracture. Because of seizure, he was started back on his IV Keppra and was seen in consultation by Dr. Art who added Vimpat 100 mg twice a day, has had no further seizures as witnessed here in the hospital and has been stable hemodynamically, although he seem to have some memory problems and therefore a decision was made to discharge him home with home health and to follow with Dr. Art's clinic tomorrow for outpatient electroencephalogram. PHYSICAL EXAMINATION: GENERAL: When I saw him this afternoon, he looked well and was clearly in no apparent respiratory distress. No pallor, jaundice, cyanosis or thyromegaly. No jugular venous distention. No lower limb edema. VITAL SIGNS: Heart rate was 70, blood pressure was 148/94, temperature was 97.8, respiratory rate was 14 and oxygen saturation was 98% on room air. HEAD, EYES, EARS, NOSE AND THROAT: Showed normocephalic, atraumatic. NECK: Supple. HEART: Showed normal first and second heart sounds with no gallop or murmur. CHEST: Clear to auscultation. No crepitation or rhonchi. ABDOMEN: Distended, soft, nontender. No guarding or rigidity. No organomegaly. All hernial orifice intact. Bowel sounds normal. NEUROLOGIC: He was definitely awake, alert, responding appropriately. All cranial nerves are intact. He moves extremities without difficulty, ambulates without a walker. LABORATORY DATA: This morning showed a white cell count of 5900, hemoglobin 15.5, hematocrit 44.8, MCV 87 and platelet count of 93,000. His prothrombin time was 11.5, INR 1.1, aPTT was 27. His chemistry this morning showed a serum sodium 137, potassium 3.8, chloride 103, bicarbonate 26, anion gap of 8, BUN 16, creatinine 1, estimated GFR was 73 mL per minute. His calcium was 8.3. His total bilirubin, AST, ALT, alkaline phosphatase were normal. Total protein was 6.5, albumin was 3.4. Urinalysis was essentially unremarkable. CT scan of the head and cervical spine showed straightening of normal cervical lordosis with no acute osseous or alignment abnormality, severe multilevel degenerative changes resulting bony central canal stenosis at C6-C7 and moderate to severe neural foramina narrowing in the left at C2-C3 and C6-C7. No acute intracranial hemorrhage. No extraaxial fluid collection, no mass effect or midline shift, ventricular size are normal. Basal cisterns are patent. No fracture identified. Rice-white differentiation is preserved. Globes and orbits are within normal limits. Paranasal sinuses and mastoid air cells are clear. Small right frontal scalp hematoma unchanged. DISCHARGE MEDICATIONS: He was discharged home to continue on his Vimpat 100 mg twice a day, apixaban 5 mg twice a day and Keppra 1500 mg twice a day, levothyroxine sodium 75 mcg once a day, metoprolol succinate 50 mg once a day. FINAL DISCHARGE DIAGNOSES: 1. Breakthrough seizures with longstanding history of seizure disorder. 2. The patient has multiple other medical problems including: A. Paroxysmal atrial fibrillation. B. Hypothyroidism. C. Hypertension. D. Hyperlipidemia. E. Possible early dementia. F. Thrombocytopenia. ROBERT PAULINO MD DR: JOSY/hank JOB#: [id number] / [id number]
--- NOTE | 2019-08-30 15:03 | NUR ---
Discharge Note: [facility] Discharge instructions and discharge home medications were reviewed with the patient by Kasia MEDINA and a copy was given. All questions have been answered but patient did express some concern about understanding the new discharge medication routine. Patient was informed that [facility], where he lives in the Independent Living section, was informed of that he would be starting a new medication and that he would need to take a dose at bedtime this evening. [facility] agreed to garbage pick up worker his new prescription that [facility]. This RN also contacted [facility], the Home Health Agency, who is the patients current home health agency for medication management. The following instructions and handouts were given: Discharge instructions along with new medication information handouts. [] Discontinued lines and drains: Two peripheral IV lines were discontinued. Patient discharged to [facility]. Patient left the unit via wheelchair accompanied by Kasia MEDINA and [facility] transportation personnel with all of his personal belongings.
== END 2019-08-30 14:50 | disposition home health service (06) | DRG 100 ==
LOC: ER 10:37 → ICU 13:54 → OBSVTOIN 15:30
PROVIDERS: ADMIT Hospitalist; ATTEND Internal Medicine
PROC: 0HQ1XZZ Repair Face Skin, External Approach (ICD-10-PCS; principal; 2019-08-27)
PROC: 0HQ0XZZ Repair Scalp Skin, External Approach (ICD-10-PCS; 2019-08-27)
DX: G40.909 Epilepsy, unspecified, not intractable, without status epilepticus (principal); N17.0 Acute kidney failure with tubular necrosis; I48.20 Chronic atrial fibrillation, unspecified; S01.81XA Laceration without foreign body of other part of head, initial encounter; S01.01XA Laceration without foreign body of scalp, initial encounter; W18.39XA Other fall on same level, initial encounter; E86.0 Dehydration; E03.9 Hypothyroidism, unspecified; E78.5 Hyperlipidemia, unspecified; D69.6 Thrombocytopenia, unspecified; I10 Essential (primary) hypertension; I48.0 Paroxysmal atrial fibrillation; F03.90 Unspecified dementia, unspecified severity, without behavioral disturbance, psychotic disturbance, mood disturbance, and anxiety; S06.0X0A Concussion without loss of consciousness, initial encounter; Z90.49 Acquired absence of other specified parts of digestive tract; Z95.0 Presence of cardiac pacemaker; Z79.01 Long term (current) use of anticoagulants; Z79.899 Other long term (current) drug therapy; Y93.89 Activity, other specified; Y92.89 Other specified places as the place of occurrence of the external cause; Y99.8 Other external cause status; Z88.0 Allergy status to penicillin; Z86.73 Personal history of transient ischemic attack (TIA), and cerebral infarction without residual deficits
CPT/HCPCS: 12001; 12011; 36415; 51702; 70450; 72125; 80048; 80053; 80177; 81001; 83605; 85007; 85025; 85610; 85730; 90471; 90686; 90715; 93005; 96360; G0378; G0379; J1953; J2060; 99285-25; J7030